=== PATIENT | female | born 1945 | race Caucasian/White ===

== ENCOUNTER 2016-09-05 10:10 | Emergency (ER) | payer BC ==
[~2016-09-05] VITALS: Ht 167.6 cm; Wt 76.5 kg
[~2016-09-05 10:10] MED LIST: ASPCH81X PO; CALC-51 PO; DICL-201 PO; GLUCOSAMINE PO; MULTTAB58 PO; OMEG12006 PO; VITAMIN D PO
[2016-09-05 10:11] VITALS: TEMP 36.3; Ht 167.6 cm; Wt 76.5 kg
[2016-09-05] MEDS ORDERED: ONDANSETRON INJ 2 MG/ML 2 ML VIAL IV STA (10:18)
[2016-09-05] MEDS ORDERED: KETOROLAC TROMETHAMINE 30 MG/ML VIAL IV STA (10:18)
[2016-09-05] MEDS ORDERED: SODIUM CHLORIDE 0.9% 1000ML 500 ML IV STA (10:18)
[2016-09-05] MEDS ORDERED: MoRPHine SULFATE 4 MG/ML 1 ML CARP\\VIAL IV PRN (10:30)
[2016-09-05 11:05] LABS: HEMATOCRIT 41.1 % (37-47); MEAN CELL VOLUME 87.4 fL (80-100); MEAN CORPUSCULAR HEMOGLOBIN 29.8 pg (25-34); MEAN CORPUSCULAR HGB CONC 34.1 g/dl (32-36); MEAN PLATELET VOLUME 10.6 fL (7.4-10.4); PLATELET COUNT 189 K/uL (130-400); WHITE BLOOD COUNT 4.85 K/uL (4.8-10.8)
[2016-09-05] MEDS ORDERED: CHOL1000 PO (11:10)
[2016-09-05] MEDS ORDERED: GARL1200 PO (11:10)
[2016-09-05] MEDS ORDERED: CALC-51 PO (11:10)
[2016-09-05] MEDS ORDERED: FLNIN/ NAE (11:10)
[2016-09-05] MEDS ORDERED: CYAN100048 PO (11:10)
[2016-09-05] MEDS ORDERED: [UNRECOGNIZED DRUG - CODE] PO (11:10)
[2016-09-05 11:23] LABS: CREATININE 0.84 mg/dl (0.60-1.20)
[2016-09-05 11:24] LABS: BUN/CREATININE RATIO 36.8 (10-20); CALCIUM 8.8 mg/dl (8.5-10.1); POTASSIUM 3.9 mmol/L (3.5-5.1)
--- NOTE | 2016-09-05 11:28 | DIAGNOSTIC IMAGING REPORT ---
CT SCAN OF THE ABDOMEN AND PELVIS WITHOUT CONTRAST CLINICAL HISTORY: Right flank pain and hematuria. COMPARISON STUDY: 03/09/2015 TECHNIQUE: CT scan of the abdomen and pelvis was performed from the lung bases to the proximal femurs. Images are reviewed in the axial, sagittal, and coronal planes. IV contrast was not administered for this examination. CT DOSE: 919.08 mGycm FINDINGS: Lower chest: The heart is normal in size and configuration, without pericardial effusion. The lung bases and pleural spaces are clear. Liver: The unenhanced liver is normal in size, contour, and attenuation. There is no intrahepatic biliary ductal dilatation. There is a coarse right lobe calcification likely postinflammatory. Gallbladder: Surgically absent Spleen: Normal in size and attenuation. Pancreas: There is a stable 1 cm cystic lesion at the level the mid pancreatic body. This likely represents an IPMN Adrenal glands: Unremarkable. Kidneys: There is mild right-sided hydronephrosis. There is a 3 mm calculus at the level of the right ureteropelvic junction Bowel: There are no transition zones to indicate bowel obstruction. There is no acute diverticulitis. The appendix is felt to be normal. Peritoneum: There is no intraperitoneal free air or abdominal ascites. Vasculature: The abdominal aorta is normal in course and caliber. Adenopathy: None. Pelvic viscera: The uterus appears surgically absent. Skeletal structures: No destructive osseous lesions are seen. IMPRESSION: 1. 3 mm calculus at the level of the right ureteropelvic junction with mild secondary obstructive changes 2. Stable 1 cm cystic lesion within the mid pancreatic body, likely representing an IPMN Electronically signed by: Doug Fuentes M.D. 09/05/2016 11:26 AM Dictated Date/Time: 09/05/2016 11:22 AM
[2016-09-05 12:48] LABS: URINE APPEARANCE CLEAR (CLEAR); URINE BILIRUBIN NEG (NEG); URINE COLOR YELLOW; URINE EPITHELIAL CELL AUTO >30 /lpf (0-5); URINE NITRITE NEG (NEG); URINE SPECIFIC GRAVITY 1.021 (1.000-1.030); UROBILINOGEN NEG (NEG); ZZUR CULT IF INDIC CLEAN CATCH YES
[2016-09-05 12:56] LABS: MANUAL MICROSCOPIC REQUIRED? NO; REVIEW REQ? YES
[2016-09-05 13:25] LABS: URINE MUCUS PRESENT (NONE PRSENT)
[2016-09-05] MEDS ORDERED: OXYC1TAB3 PO (13:46)
[2016-09-05 14:00] VITALS: BP 115/54; PULSE 55; O2SAT 99
--- NOTE | 2016-09-05 14:40 | EMERGENCY ROOM VISIT NOTE ---
History Report prepared by Lucia: Jez Rolon Under the Supervision of: Dr. Gokul Slaughter M.D. First contact with patient: 10:15 Chief Complaint: URINARY SYMPTOMS Stated Complaint: KIDNEY PAIN History of Present Illness The patient is a 71 year old female who presents to the Emergency Room with complaints of constant right flank pain starting two hours ago. She reports the pain as a 9/10 in severity. The patient states that she was not able to get sleep last night and woke up with the severe pain in her right flank. She also states that when she initially woke up she felt constipated and nauseous, but had two bowel movements later relieving her of these symptoms. She reports that she came to the ED a year and a half ago when they ran a CT scan and found a small kidney calculus. The patient states that they gave her medication for her pain and that she never saw the kidney stone pass. The patient states that the pain she is currently experiencing is similar to the pain she experienced when she had her last kidney calculus. She reports that she has been drinking a lot of fluid. The patient denies any urinary symptoms or radiation of pain. 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 A total of 10 systems reviewed and were otherwise negative. Past Medical & Surgical Medical Problems: (1) Basal cell carcinoma of skin Surgical Problems: (1) H/O bilateral salpingo-oophorectomy (2) History of cholecystectomy (3) History of hysterectomy Family History Patient reports no known family medical history. Social History Smoking Status: Never Smoker Smokeless Tobacco Use: No Alcohol Use: occasionally (one drink/ week) Drug Use: none Occupation Status: employed Current/Historical Medications Scheduled Aspirin (Aspirin Chewable), 81 MG PO QPM Calcium Carbonate-Vitamin D (Calcium), 1 TAB PO DAILY Cholecalciferol (Vitamin D3), 1 TAB PO DAILY Cyanocobalamin (Vitamin B-12), 1 TAB PO DAILY Fluticasone Propionate (Fluticasone Propionate), 1 SPRAY JOSE ENRIQUE DAILY Garlic (Garlic), 1 CAP PO DAILY Multiple Vitamin (Multivitamin), 1 TAB PO QPM Wallace-3 Fatty Acids (Wallace 3), 1 CAP PO QPM [Reuma-Art], 1 CAP PO DAILY Scheduled PRN Oxycodone Ir (Roxicodone Ir), 1-2 TAB PO Q4H PRN for Pain Allergies Coded Allergies: No Known Allergies (Verified , 03/23/16) Physical Exam Vital Signs Date Time Temp Pulse Resp B/P (MAP) Pulse Ox O2 Delivery O2 Flow Rate FiO2 09/05/16 14:00 55 20 115/54 99 09/05/16 11:40 59 20 131/65 95 09/05/16 10:47 62 20 158/68 100 Room Air 09/05/16 10:11 36.3 113 20 161/69 92 Room Air Physical Exam GENERAL: Patient is in moderate distress secondary to pain. HEENT: No acute trauma, normocephalic atraumatic, mucous membranes moist, no nasal congestion, no scleral icterus. NECK: No stridor, no adenopathy, no meningismus, trachea is midline. LUNGS: Clear to auscultation bilaterally, no wheeze, no rhonchi, breath sounds equal. HEART: Without murmurs gallops or rubs, regular rate and rhythm. ABDOMEN: Soft, nontender, bowel sounds positive, no hernias, no peritonitis. BACK: Right flank discomfort with percussion EXTREMITIES: No cyanosis or edema, full range of motion of all the joints without pain or difficulty, no signs for acute trauma. NEUROLOGIC: Oriented x 3, no acute motor or sensory deficits, no focal weakness. SKIN: No rash, no jaundice, no diaphoresis. Medical Decision & Procedures ER Provider Diagnostic Interpretation: CT results as stated below per my review and radiologist interpretation: CT SCAN OF THE ABDOMEN AND PELVIS WITHOUT CONTRAST CLINICAL HISTORY: Right flank pain and hematuria. COMPARISON STUDY: 03/09/2015 TECHNIQUE: CT scan of the abdomen and pelvis was performed from the lung bases to the proximal femurs. Images are reviewed in the axial, sagittal, and coronal planes. IV contrast was not administered for this examination. CT DOSE: 919.08 mGycm FINDINGS: Lower chest: The heart is normal in size and configuration, without pericardial effusion. The lung bases and pleural spaces are clear. Liver: The unenhanced liver is normal in size, contour, and attenuation. There is no intrahepatic biliary ductal dilatation. There is a coarse right lobe calcification likely postinflammatory. Gallbladder: Surgically absent Spleen: Normal in size and attenuation. Pancreas: There is a stable 1 cm cystic lesion at the level the mid pancreatic body. This likely represents an IPMN Adrenal glands: Unremarkable. Kidneys: There is mild right-sided hydronephrosis. There is a 3 mm calculus at the level of the right ureteropelvic junction Bowel: There are no transition zones to indicate bowel obstruction. There is no acute diverticulitis. The appendix is felt to be normal. Peritoneum: There is no intraperitoneal free air or abdominal ascites. Vasculature: The abdominal aorta is normal in course and caliber. Adenopathy: None. Pelvic viscera: The uterus appears surgically absent. Skeletal structures: No destructive osseous lesions are seen. IMPRESSION: 1. 3 mm calculus at the level of the right ureteropelvic junction with mild secondary obstructive changes 2. Stable 1 cm cystic lesion within the mid pancreatic body, likely representing an IPMN Electronically signed by: Doug Fuentes M.D. 09/05/2016 11:26 AM Dictated Date/Time: 09/05/2016 11:22 AM Laboratory Results 09/05/16 10:50 09/05/16 10:50 Test 09/05/16 10:50 09/05/16 11:59 Red Blood Count 4.70 M/uL (4.2-5.4) Mean Corpuscular Volume 87.4 fL (80-100) Mean Corpuscular Hemoglobin 29.8 pg (25-34) Mean Corpuscular Hemoglobin Concent 34.1 g/dl (32-36) RDW Standard Deviation 44.7 fL (36.4-46.3) RDW Coefficient of Variation 13.8 % (11.5-14.5) Mean Platelet Volume 10.6 fL (7.4-10.4) Anion Gap 11.0 mmol/L (3-11) Est Creatinine Clear Calc Drug Dose 66.0 ml/min Estimated GFR () 82.2 Estimated GFR (Non- 70.9 BUN/Creatinine Ratio 36.8 (10-20) Calcium Level 8.8 mg/dl (8.5-10.1) Urine Color YELLOW Urine Appearance CLEAR (CLEAR) Urine pH 7.0 (4.5-7.5) Urine Specific Paterson 1.021 (1.000-1.030) Urine Protein TRACE (NEG) Urine Glucose (UA) NEG (NEG) Urine Ketones NEG (NEG) Urine Occult Blood 3+ (NEG) Urine Nitrite NEG (NEG) Urine Bilirubin NEG (NEG) Urine Urobilinogen NEG (NEG) Urine Leukocyte Esterase MODERATE (NEG) Urine WBC (Auto) 10-30 /hpf (0-5) Urine RBC (Auto) >30 /hpf (0-4) Urine Hyaline Casts (Auto) 1-5 /lpf (0-5) Urine Epithelial Cells (Auto) >30 /lpf (0-5) Urine Bacteria (Auto) 1+ (NEG) Urine Renal Epithelial Cells /lpf (0-5) Urine Crystals CALCIUM OXALATE (NONE Urine Mucus PRESENT (NONE PRSENT) Laboratory results reviewed by me. Medications Administered Medications (Trade) Dose Ordered Sig/Annia Route Start Time Stop Time Status Last Admin Dose Admin Sodium Chloride 500 ml @ 999 mls/hr Q31M STAT IV 09/05/16 10:18 09/05/16 10:48 DC 09/05/16 10:18 999 MLS/HR Ondansetron HCl (Zofran Inj) 4 mg NOW STAT IV 09/05/16 10:18 09/05/16 10:21 DC 09/05/16 10:45 4 MG Morphine Sulfate (MoRPHine SULFATE INJ) 4 mg Q15M PRN IV 09/05/16 10:30 09/05/16 14:35 DC 09/05/16 10:46 4 MG Ketorolac Tromethamine (Toradol Inj) 30 mg NOW STAT IV 09/05/16 10:18 09/05/16 10:21 DC 09/05/16 10:46 30 MG ED Course 1019: The patient was evaluated in room B08. A complete history and physical exam was performed. 1019: Toradol Injection 30 mg IV, Zofran Injection 4 mg IV, Sodium Chloride 500 ml @ 999 mls/hr. 1030: Morphine Sulfate 4 mg IV. 1201: I reevaluated the patient. She is comfortable and gave her urine sample. She is currently waiting on the results. 1336: I reevaluated the patient and she is doing well. I discussed results and discharge instructions: She verbalized understanding and agreement. The patient is ready for discharge. I did personally review the patient's medication list. The patient's blood pressure is mildly elevated and she can be referred as an outpatient to follow with her doctors office. Medical Decision The differential diagnosis include but is not limited to: Renal colic, UTI, pyelonephritis, pancreatitis, musculoskeletal pain, nerve impingement, hernia. There is no leukocytosis or concerning anemia. No significant electrolyte abnormality or kidney failure. Urinalysis shows hematuria and presumed contamination, urine culture is pending. Abdominal and pelvis CT shows a 3 mm stone in the ureter at the UPJ. Hydronephrosis was present. The patient was given IV saline, IV Toradol, IV Zofran and IV morphine, she is comfortable. The patient is being discharged with a urine strainer, oxycodone for pain. Hydration and follow-up as an outpatient was suggested. She should return here for fever, vomiting or uncontrolled pain. [place] Drug Monitoring Program Search Results: patient reviewed within database, no issues identified Impression Primary Impression: Renal colic Scribe Attestation The scribe's documentation has been prepared under my direction and personally reviewed by me in its entirety. I confirm that the note above accurately reflects all work, treatment, procedures, and medical decision making performed by me. Departure Information Dispostion Home / Self-Care Prescriptions Oxycodone Ir (Roxicodone Ir) 5 Mg Tab 1-2 TAB PO Q4H Y for Pain, #12 TAB Prov: Gokul Slaughter M.D. 09/05/16 Referrals No Doctor, Assigned (PCP) Forms HOME CARE DOCUMENTATION FORM, IMPORTANT VISIT INFORMATION Patient Instructions My [facility] [place] SuddenValues Additional Instructions fluids rest motrin/tylenol for pain oxy ir 1-2 tab every 4 hours for severe pain follow with tammy cabrera for a recheck later this week strain all the urine for the stone return for fever, vomiting or uncontrolled pain
== END 2016-09-05 14:03 | disposition home or self-care (01) ==
LOC: C.EDB 10:11
DX: N23 Unspecified renal colic (principal); C44.91 Basal cell carcinoma of skin, unspecified; Z79.82 Long term (current) use of aspirin

== ENCOUNTER → 2017-01-02 | Outpatient (CLI) | payer BC ==
[~2017-01-02] MED LIST changes: +CHOL1000 PO; +CYAN100048 PO; -DICL-201 PO; +FLNIN/ NAE; +GARL1200 PO; -GLUCOSAMINE PO; +OXYC1TAB3 PO; -VITAMIN D PO; +[UNRECOGNIZED DRUG - CODE] PO
--- NOTE | 2017-01-03 07:41 | MAMMOGRAPHY REPORT ---
BILATERAL DIGITAL SCREENING MAMMOGRAM TOMOSYNTHESIS WITH CAD: 01/02/2017 CLINICAL HISTORY: Routine screening. Patient has no complaints. TECHNIQUE: Breast tomosynthesis in addition to standard 2D mammography was performed. Current study was also evaluated with a Computer Aided Detection (CAD) system. COMPARISON: Comparison is made to exams dated: 01/01/2016 mammogram, 12/29/2014 mammogram, 12/20/2012 m ammogram, 12/17/2010 mammogram, and 12/16/2009 mammogram - [facility]. BREAST COMPOSITION: There are scattered areas of fibroglandular density in both breasts. FINDINGS: There is a possible area of architectural distortion in the 12:00 middle one third of the right breast, for which additional spot compression tomosynthesis views and possible ultrasound are r ecommended. There are diffuse bilateral benign-appearing punctate microcalcifications. No other suspicious mass, architectural distortion or cluster of microcalcifications is seen. IMPRESSION: ACR BI-RADS CATEGORY 0: INCOMPLETE EVALUATION: NEED ADDITIONAL IMAGING EVALUATION The possible architectural distortion in the 12:00 right additional evaluation. The patient will be called to schedule an appointment. Approximately 10% of breast cancers are not detected with mammography. A negative mammographic report should not delay biopsy if a clinically suggestive mass is present. Shanna Emmanuel M.D. ay/:01/02/2017 16:01:17 Paper Goods Machine Operator: Milady ROCA(R)(M), [facility] letter sent: Addl Imaging 0 BI-RADS Code: ACR BI-RADS Category 0: Incomplete Evaluation: Need Additional Imaging Evaluation
== END | disposition home or self-care (01) ==
LOC: C.MAMM 09:35
PROVIDERS: ATTEND Family Medicine
DX: Z12.31 Encounter for screening mammogram for malignant neoplasm of breast (principal); R92.8 Other abnormal and inconclusive findings on diagnostic imaging of breast

== ENCOUNTER → 2017-01-11 | Outpatient (CLI) | payer BC ==
--- NOTE | 2017-01-12 07:49 | MAMMOGRAPHY REPORT ---
UNILATERAL RIGHT DIGITAL DIAGNOSTIC MAMMOGRAM TOMOSYNTHESIS AND TARGETED RIGHT ULTRASOUND: 01/11/2017 CLINICAL HISTORY: Callback from screening mammogram for possible right breast architectural distortio n. The patient reports a family history of breast cancer in her mother. TECHNIQUE: Breast tomosynthesis in addition to standard 2D mammography was performed. Spot compress ion right CC and MLO 2-D and tomosynthesis images were obtained. COMPARISON: Comparison is made to exams dated: 01/02/2017 mammogram, 01/01/2016 mammogram, 12/29/2014 m ammogram, 12/23/2013 mammogram, 12/20/2012 mammogram, and 12/20/2011 mammogram - [facility]. BREAST COMPOSITION: There are scattered areas of fibroglandular density in the right breast. FINDINGS: The previously described possible architectural distortion in the right 12:00 breast remain s equivocal on the spot compression views, without a suspicious associated mass or other associated f inding seen on the additional images. Targeted ultrasound was performed of the right breast in the r egion of the questionable architectural distortion. In the right breast at 11:30 periareolar region, there is a subtle ill-defined hypoechoic region measuring 1.4 x 0.9 cm. It is unclear if this could correlate with the mammographic finding. The finding is indeterminate and ultrasound-guided core ne edle biopsy is recommended for further evaluation. IMPRESSION: ACR BI-RADS CATEGORY 4: SUSPICIOUS, TARGETED ULTRASOUND ACR BI-RADS CATEGORY 4: SUSPICIO US Equivocal architectural distortion in the right 12:00 breast mammographically on the additional views . A subtle 1.4 cm hypoechoic region is seen in the right 11:30 breast on ultrasound, which may corre spond with the mammographic finding. The finding is indeterminate and ultrasound-guided core needle biopsy is recommended for further evaluation, with post-clip mammograms to evaluate for mammographic- sonographic concordance. A phone call was made to the physician's office to confirm faxed results were received. The patient has been verbally notified of the results. She tentatively scheduled the biopsy before leaving the [facility]. Approximately 10% of breast cancers are not detected with mammography. A negative mammographic report should not delay biopsy if a clinically suggestive mass is present. Lynn Felton M.D. /:01/11/2017 12:01:09 Assistant Technician: Minnie Ellis RT(Bowen)(M), [facility] letter sent: Abnormal 4/5 BI-RADS Code: ACR BI-RADS Category 4: Suspicious Ultrasound BI-RADS: ACR BI-RADS Category 4: Suspici ous
== END | disposition home or self-care (01) ==
LOC: C.MAMM 10:48
PROVIDERS: ATTEND Family Medicine
DX: R92.8 Other abnormal and inconclusive findings on diagnostic imaging of breast (principal)

== ENCOUNTER → 2017-01-19 | Outpatient (CLI) | payer BC ==
--- NOTE | 2017-01-19 09:50 | Discharge Instructions ---
Discharge Instructions Procedure Procedure Date: Jan 19, 2017. Reason for visit: Right Hypoechoic Area. Discharge Discharge Date: Jan 19, 2017. Discharge Diagnosis: status post breast biopsy Instructions Activity Recommendations: Additional Limitations (see below) Return to School/Work: no limitations Recommended Home Diet: No Limitations Provider Instructions: ACTIVITY RECOMMENDATIONS: * No lifting, pushing, pulling or exercising the affected side for three days. RETURN TO SCHOOL/WORK: * You may return to work/school after the procedure, but do not perform any strenuous activities for 24 to 48 hours. MEDICATIONS: * Tylenol (two 325 mg) every four to six hours if needed for mild pain (if not allergic to Tylenol). DIET: * Resume previous diet. SPECIAL CARE INSTRUCTIONS: * Keep biopsy site dry for 24 hours. May shower after 24 hours, but do not soak (bathe) incision. * May remove Tegaderm (plastic patch) tomorrow AFTER showering. * Leave the steri-strips on for one week. Allow the steri-strips to fall off by themselves. If not off after one week, you may remove them. You may place a Bandaid crosswise over the strips, if desired. * Apply ice 10 minutes on and 10 minutes off as needed. * Wear a bra at bedtime to sleep more comfortably for 2-3 days. * Your referring physician should have the results after approximately 5 to 7 business days. * Call for unusual bleeding, fever, drainage, etc or if you have any questions call during normal business hours or after hours call Dr Felton, [phone]. FOLLOW UP VISIT: Follow-up with Referring Physician as scheduled. Allergies Coded Allergies: No Known Allergies (Verified , 03/23/16) Rekha Paez Recommendations: Call your doctor if: * Temperature above 101 degrees * Pain not relieved by pain medicine ordered * There is increased drainage or redness from any incision * You have any unanswered questions or concerns. Your Doctors Instructions noted above were prepared by provider Lynn Felton. Patient Signature Section: Patient Instructions Signature Page Love Carmen Patient (or Guardian) Signature/Date: I have read and understand the instructions given to me by my caregivers. Caregiver/RN/Doctor Signature/Date: The above-named patient and/or guardian has received patient instructions on this date. + Original Patient Signature Page (only) stays with chart. Please make copy for patient.
--- NOTE | 2017-01-19 14:32 | MAMMOGRAPHY REPORT ---
THIS REPORT HAS BEEN AMENDED. ULTRASOUND GUIDED BIOPSY RIGHT BREAST: 01/19/2017 CLINICAL HISTORY: Ill-defined hypoechoic region in the right 11:30 breast on ultrasound. PATIENT CONSENT: The procedure, risks and benefits were discussed with the patient and informed writt en consent was obtained. A timeout was performed immediately prior to the procedure. PROCEDURE DESCRIPTION: With ultrasound guidance, aseptic technique, and lidocaine as the local anesth etic (1% lidocaine to anesthetize the skin and 1% lidocaine with epinephrine to anesthetize the deepe r tissues), the hypoechoic region in the right 11:30 breast was sampled 4 times with a 14-gauge Achie ve biopsy needle. Immediately thereafter, with ultrasound guidance, aseptic technique, and lidocaine as the local anesthetic, a metallic localizer clip was placed at the biopsy site. Direct pressure w as applied to the site immediately post procedure and hemostasis was achieved. Postprocedure unilate ral mammograms were performed to confirm clip placement. The patient tolerated the procedure without complication. She was given wound care instructions. The specimens were sent to pathology for lona sis. COMPARISON: Comparison is made to exams dated: 01/11/2017 ultrasound, 01/11/2017 mammogram, 7 mammogram, 01/01/2016 mammogram, 12/29/2014 mammogram, and 12/23/2013 mammogram - [facility]. IMPRESSION: ULTRASOUND GUIDED BIOPSY Ultrasound guided core needle biopsy of the hypoechoic region in the right 11:30 breast, with clip pl acement. The patient will receive pathology results from her referring provider. Lynn Felton M.D. ah/:01/19/2017 09:51:35 Account Management Assistant: Minnie CHEEMA)(Sameer), [facility] AMENDMENT: 01/25/2017 Lynn Felton M.D. Pathology from ultrasound-guided right breast biopsy was reviewed on 01/25/2017. The pathology of the right 11:30 breast mass yielded infiltrative lobular carcinoma grade 1, which is concordant with the imaging findings. Surgical consultation is recommended. Given the subtle mammographic appearance o f the malignancy and given the lobular pathology, consider preoperative bilateral breast MRI.
--- NOTE | 2017-01-19 14:32 | MAMMOGRAPHY REPORT ---
UNILATERAL RIGHT DIGITAL DIAGNOSTIC MAMMOGRAM TOMOSYNTHESIS: 01/19/2017 CLINICAL HISTORY: Status post right breast ultrasound guided biopsy. TECHNIQUE: Breast tomosynthesis in addition to standard 2D mammography was performed. Postprocedura l right CC and ML tomosynthesis images were obtained. COMPARISON: Comparison is made to exams dated: 01/11/2017 ultrasound, 01/11/2017 mammogram, 7 mammogram, 01/01/2016 mammogram, 12/29/2014 mammogram, and 12/23/2013 mammogram - [facility]. BREAST COMPOSITION: There are scattered areas of fibroglandular density in the right breast. FINDINGS: A new biopsy marker clip is seen in the right breast status post ultrasound guided biopsy of the hypoechoic region in the right 11:30 rest. The biopsy clip is located in the area of equivoca l architectural distortion, indicating good mammographic-sonographic correlation. No significant pos tbiopsy hematoma is seen. IMPRESSION: POST PROCEDURE IMAGING FOR MARKER PLACEMENT New biopsy marker clip status post right breast biopsy. Pathology results are pending. Approximately 10% of breast cancers are not detected with mammography. A negative mammographic report should not delay biopsy if a clinically suggestive mass is present. Lynn Felton M.D. ah/:01/19/2017 10:01:58 Automatic I Threading Machine Feeder: Minnie CHEEMA)(Sameer), [facility] BI-RADS Code: Post Procedure Imaging For Marker Placement
== END | disposition home or self-care (01) ==
LOC: C.MAMM 09:20
PROVIDERS: ATTEND Family Medicine
DX: C50.911 Malignant neoplasm of unspecified site of right female breast (principal)

== ENCOUNTER → 2017-06-08 | Outpatient (CLI) | payer BC ==
[~2017-06-08] MED LIST changes: +BLUEBERRY PO; -GARL1200 PO; -OXYC1TAB3 PO; +Tumeric PO
== END | disposition home or self-care (01) ==
LOC: C.PATHSPEC 16:44
PROVIDERS: ATTEND Dermatology
DX: L57.0 Actinic keratosis (principal)

== ENCOUNTER → 2017-07-04 | Outpatient (CLI) | payer BC ==
[~2017-07-04] MED LIST changes: +FMR25 PO
[2017-07-04 14:55] VITALS: BP 137/78; PULSE 76; TEMP 36.8; O2SAT 93
--- NOTE | 2017-07-04 17:03 | Radiation Oncology Follow-Up ---
Radiation Oncology Follow-Up Date of Visit Jul 04, 2017. Reason For Visit One-month follow-up in cancer survivorship care plan Radiation Completion Date 06/06/17 Diagnosis (1) Malignant neoplasm of upper-outer quadrant of right breast in female, estrogen receptor positive Status: Acute Onset Date: 01/19/2017 Stage: ll Permanent Comment: Abnormal right breast mammogram Status post ultrasound-guided core needle biopsy 01/19/2017 Lobular carcinoma grade 1 Estrogen receptor positive, progesterone receptor positive, HER-2/charo negative Status post right needle localization lumpectomy and sentinel lymph node biopsy 03/01/2017 Stage pT2 pN0 M0, positive margin Status post reexcision 04/05/2017, benign Prosigna score 31 Status post completion of radiation therapy June 06, 2017. She received 5130 cGy utilizing hypo-fractionation. Last Edited By: Nimo Barry on Jun 16, 2017 12:07 History of Present Illness We are seeing Ms. Carmen in consultation at the request of Dr. Skye Valenzuela. Ms. Carmen presented with an abnormal mammogram on 01/02/2017. 01/02/2017 - Bilateral screening mammogram - IMPRESSION: ACR BI-RADS CATEGORY 0 : INCOMPLETE EVALUATION: NEED ADDITIONAL IMAGING EVALUATION. The possible architectural distortion in the 12:00 right additional evaluation. 01/19/2017 - unilateral right diagnostic mammogram - IMPRESSION: ACR BI-RADS CATEGORY 4: SUSPICIOUS, TARGETED ULTRASOUND ACR BI-RADS CATEGORY 4: SUSPICIOUS. Equivocal architectural distortion in the right 12:00 breast mammographically on the additional views. A subtle 1.4 cm hypoechoic region is seen in the right 11:30 breast on ultrasound, which may correspond with the mammographic finding. The finding is indeterminate and ultrasound-guided core needle biopsy is recommended for further evaluation, with post-clip mammograms to evaluate for mammographic-sonographic concordance. 01/19/2017 - right breast biopsy, 11:30 position - invasive lobular carcinoma, grade 1, no in situ component, no perineural/lymphovascular space invasion, estrogen receptor positive, progesterone receptor positive, HER-2 negative. 01/31/2017 - consultation with Dr. Skye Valenzuela, breast surgeon. Patient elected to undergo lumpectomy and sentinel lymph node biopsy. She underwent a CT simulation was found to be a candidate for hypo- fractionation. Radiation was completed June 06, 2017. She received 5130 cGy. 03/01/2017 - right breast lumpectomy/sentinel lymph node biopsy (Dr. Skye Valenzuela ) - invasive lobular carcinoma, grade 2 with direct extension to posterior margin of resection and close approximation of the anterior/medial margins. 21 mm. 0/2 SLNs positive. Prosigna score - 31, "low risk" 03/14/2017 - blood sample obtained for genetic testing. Negative result for the BRCA1/2 mutations. 03/16/2017 - patient seen in consultation by Dr. Polo Laird, medical oncology. Dr. Laird recommended adjuvant hormonal therapy utilizing letrozole. Dr. Laird recommended adjuvant radiation therapy. 04/05/2017 - reexcision to obtain negative margins by Dr. Valenzuela - pathology revealed benign breast tissue with extensive fat necrosis and reactive biopsy site changes with no evidence of atypia or malignancy. Dr. Valenzuela referred the patient for adjuvant radiation therapy. We are now seeing the patient in consultation to discuss the role of radiation therapy. Pro-signal score of 31 Status post completion of radiation therapy June 06, 2017. She received 5130 centigrade utilizing hypo-fractionation. Interim History She has been doing well over this past month. She had some mild skin irritation that has steadily resolved. She denies any pain or tenderness. She is noted no masses of the breast. She has no swelling in the axilla. She has had no change of her arm. She did note some swelling in the left lower neck and above the clavicle. This began approximately 2 weeks ago. She does have a dermatologic issue going on in regards to her left arm. She has been using a new topical cream from the shuttle preparation supervisor. Allergies Coded Allergies: No Known Allergies (Verified , 03/23/16) Home Medications Scheduled Aspirin (Aspirin Chewable), 81 MG PO QPM Calcium Carbonate-Vitamin D (Calcium), 1 TAB PO DAILY Cyanocobalamin (Vitamin B-12), 1 TAB PO DAILY Letrozole (Femara), 1 TAB PO DAILY Multiple Vitamin (Multivitamin), 1 TAB PO QPM [place]-3 Fatty Acids ([place] 3), 2 CAP PO QPM [Reuma-Art], 1 CAP PO DAILY [Tumeric], 1 CAP PO DAILY Scheduled PRN Fluticasone Propionate (Fluticasone Propionate), 1 SPRAY JOSE ENRIQUE DAILY PRN for Allergic Reaction Review of Systems Gastrointestinal: Symptoms: WNL Oral: Symptoms: No Problems Respiratory: Symptoms: WNL Urinary: Symptoms: WNL Skin: Other Skin Symptoms: entire body feels dry Breast: Right Upper Arm Measurement: 28.8 Right Mid Arm Measurement: 23.6 Right Wrist Measurement: 15.7 Left Upper Arm Measurement: 29.0 Left Mid Arm Measurement: 22.3 Left Wrist Measurement: 15.2 Arm Dominence: Right Additional Notes: She completed a distress management report and answered "no" to all questions. Physical Exam Vital Signs Date Time Temp Pulse Resp B/P (MAP) Pulse Ox O2 Delivery O2 Flow Rate FiO2 07/04/17 14:55 36.8 76 18 137/78 93 ECOG Performance Status: 0 General Appearance: no apparent distress Eyes: normal inspection, EOMI ENT: normal ENT inspection, hearing grossly normal Neck: supple, no adenopathy, + pertinent finding (She has palpable fullness in the left supraclavicular area. There is no palpable nodes.) Respiratory/Chest: lungs clear, no respiratory distress, no accessory muscle use Breast: Breast examination reveals well-healed incisions of the right breast. There are no masses or tenderness and no axillary adenopathy. There is mild resolving hyperpigmentation. There is one small piece of eschar along the incision line. There is no axillary adenopathy. Using the Columbia score of cosmesis she has a good outcome. The left breast showed no masses or tenderness and no axillary adenopathy. Cardiovascular: regular rate, rhythm, no gallop, no murmur Extremities: no pedal edema, + pertinent finding (Keratotic lesions of the left arm with associated erythema from treatment.) Neurologic/Psychiatric: no motor/sensory deficits, alert, normal mood/affect Skin: warm/dry Pain Management Patient Reports Pain: No Initial Pain Intensity: 0.0 Pain Management Plan She denies pain therefore requires no pain management. Laboratory Laboratory Results: not applicable Pathology Pathology Results: were reviewed, and pertinent findings noted in HPI Imaging Imaging Studies: were reviewed, and pertinent findings noted in HPI Assessment & Plan Plan: The patient was seen and examined by Dr. Soria. The supraclavicular changes were discussed. She has been advised to see her shuttle preparation supervisor and have this rechecked. She will continue follow-up with her breast surgeon, medical oncology, and her primary care physician. Today we completed a cancer survivorship care plan. A copy of the document was given to the patient. She was given a survivorship booklet. Mammography was scheduled for the right breast in 2 months and bilateral mammography in 8 months. I reviewed with her that the usual continue to be digital diagnostic mammograms. We asked her to return to our office in 6 months. She may call if she has any questions or concerns in the interim. Assessment & Plan (Attending) I agree with note created by Nimo Barry PA-C. I reviewed the patient's chart and information with her. I have examined and evaluated the patient. I reviewed relevant clinical information and answered the patient's and/or family' s questions. CLEANING SPECIALIST Total Time In Follow-Up I spent 20 minutes speaking to the patient in performing examination. I spent 20 minutes reviewing information, preparing the survivorship document, and completing this note. AK Total Time (Attending) In Follow-Up I spent 15 minutes examining and counseling the patient. CLEANING SPECIALIST Copy To Skye Valenzuela MD; Polo Laird MD; Laura Guillen, D.O.
== END | disposition home or self-care (01) ==
LOC: C.ONC 14:48
PROVIDERS: ATTEND Physician Assistant Medical
DX: Z08 Encounter for follow-up examination after completed treatment for malignant neoplasm (principal); Z92.3 Personal history of irradiation; Z85.3 Personal history of malignant neoplasm of breast

== ENCOUNTER 2019-03-05 08:09 | Inpatient (IN) ==
--- NOTE | 2019-02-13 15:14 | PAT Medication Instructions ---
Medication Instructions Date of Service February 13, 2019 Home Medications magnesium glycinate 100 mg tablet 100 mg PO DAILY Fish Oil 4 cap PO DAILY Vitamin B-12 1 tab PO DAILY Vitamin D3 1 dose PO DAILY anastrozole 1 mg PO QAM calcium carbonate [Calcium 500] 500 mg PO DAILY cyclosporine [Restasis] 1 drp OPHTHALMIC (EYE) Q12H melatonin 5 mg PO HS multivitamin 1 tab PO QAM turmeric 400 mg PO DAILY ASK your prescriber and surgeon anastrozole 1 mg PO QAM STOP taking 2 weeks before surgery (or as soon as possible if surgery is within 2 weeks) Fish Oil 4 cap PO DAILY turmeric 400 mg PO DAILY DO NOT take the morning of surgery magnesium glycinate 100 mg tablet 100 mg PO DAILY Vitamin B-12 1 tab PO DAILY Vitamin D3 1 dose PO DAILY calcium carbonate [Calcium 500] 500 mg PO DAILY multivitamin 1 tab PO QAM Take morning of surgery With a small sip of water, OTHERWISE NOTHING TO EAT OR DRINK AFTER MIDNIGHT: cyclosporine [Restasis] 1 drp OPHTHALMIC (EYE) Q12H Take evening before surgery cyclosporine [Restasis] 1 drp OPHTHALMIC (EYE) Q12H melatonin 5 mg PO HS Other Notes If you have any questions please call us at [phone] or [phone] or [phone] or [phone]
--- NOTE | 2019-02-14 08:50 | Anesthesiology Consultation ---
Date of Service February 14, 2019 Assessment & Plan (1) Encounter for pre-operative examination: Chart Review Chart Review: Acceptable Risk for Surgery and Patient seen in Pre Admission Testing Teaching & Discussion Pre-Anesthesia Teaching/Discussion Notes: Instructed NPO after midnight before surgery,except medications with 15 cc of water. Medication instructions provided according to the PAT guidelines. History Surgery Operation Date: 03/05/19 12:35 Proposed Procedures p Left Total Knee Arthroplasty - Shreyas Robles MD Height/Weight Height: 5 ft 5 in Weight: 75.6 kg Allergies Allergy/AdvReac Type Severity Reaction Status Date / Time No Known Allergies Allergy Unknown Verified 02/12/19 13:24 Medications Home Medications Medication Instructions Recorded Confirmed Last Taken magnesium glycinate 100 mg tablet 100 mg PO DAILY tab 12/11/18 02/12/19 Unknown Fish Oil 4 cap PO DAILY 02/12/19 02/12/19 Unknown Vitamin B-12 1 tab PO DAILY 02/12/19 02/12/19 Unknown Vitamin D3 1 dose PO DAILY 02/12/19 02/12/19 Unknown anastrozole 1 mg PO QAM 02/12/19 02/12/19 Unknown calcium carbonate [Calcium 500] 500 mg PO DAILY 02/12/19 02/12/19 Unknown cyclosporine [Restasis] 1 drp OPHTHALMIC (EYE) Q12H 02/12/19 02/12/19 Unknown melatonin 5 mg PO HS 02/12/19 02/12/19 Unknown multivitamin 1 tab PO QAM 02/12/19 02/12/19 Unknown turmeric 400 mg PO DAILY 02/12/19 02/12/19 Unknown Past Medical History Medical History History of breast cancer s/p lumpectomy/XRT - RUE restriction History of kidney stones History of melanoma Osteoarthritis Exercise / Class Metabolic Activity II 4-5 Yardwork/Stairs/Walk up hill (one flight of stairs (no chest pain/no sob)) Past Family History Family History Brother Family history of diabetes mellitus Sister Family history of diabetes mellitus Past Surgical History Surgical History History of cholecystectomy History of colonoscopy History of lumpectomy of right breast X 2 History of melanoma excision History of right breast biopsy History of tonsillectomy History of tooth extraction History of total abdominal hysterectomy and bilateral salpingo-oophorectomy Past Anesthesia History No Hx of Anesthesia Complications and No Family Hx of Anesthesia Complications History of PONV No Hx of PONV and No Hx of Motion Sickness Social History Smoking Status: Never smoker Do You Dip or Chew Tobacco: No Hx Alcohol Use: Yes Alcohol type: beer, wine and hard liquor alcohol intake frequency: a few times a month Hx Substance Use: No substance use type: does not use Review of Systems Patient denies chest pain, shortness of breath, dyspnea on exertion, reflux, cough, wheezing, palpitations. Physical Exam Vital Signs VITALS BP 132/73 P 70 TEMP 98.3 SP02 97%RA RESP 16 PHYSICAL Full neck and c-spine range of motion. Full TMJ range of motion. TMD 3 finger breaths Mallampati Score 2 Dentition: intact, implant on side, crowns on molars Lungs: clear throughout to auscultation Cardiac: regular rate and rhythm, no murmurs noted Spine: normal Carotid arteries: negative bruit Extremities: no edema Testing Laboratory Results 02/14/19 09:20 02/14/19 09:20 PT 10.0 Seconds (9.0-12.0) 02/14/19 09:20 INR 1.0 (0.9-1.1) 02/14/19 09:20 APTT 25.7 Seconds (21.0-31.0) 02/14/19 09:20 Blood Type B Positive 02/14/19 09:20 Antibody Screen NEGATIVE 02/14/19 09:20 Electrocardiogram Date: 02/14/19 NSR at 76bpm. NS ST/TWA. Chest X-Ray Date: 02/14/19 Cardiac silhouette borderline enlarged. Lungs and pleural spaces clear. Degenerative changes of the thoracic spine. Cholecystectomy clips noted. No acute cardiopulmonary disease. Echocardiogram Date: 03/28/17 LVEF 69%. No RWMA. Grade I DD. No significant valvular disease.
--- NOTE | 2019-02-14 09:54 | XRay Report ---
XR chest Pre-admission PA/Lat CLINICAL HISTORY: 73 years-old Female presenting with preoperative evaluation. TECHNIQUE: PA and lateral views of the chest were obtained. COMPARISON: CTA chest from 01/05/2018. FINDINGS: Cardiac silhouette borderline enlarged. Lungs and pleural spaces clear. Degenerative changes of the t horacic spine. Cholecystectomy clips noted. IMPRESSION: 1. No acute cardiopulmonary disease. Electronically signed by: Moses Key M.D. 02/14/2019 9:53 AM
[2019-02-14 10:45] LABS: Basophils # (auto) 0.03 K/uL (0-0.2); Basophils % (auto) 0.7 %; Eosinophils # (auto) 0.12 K/uL (0-0.5); Eosinophils % (auto) 2.7 %; Hematocrit (blood only) 43.9 % (37-47); Immature Granulocytes # (auto) 0.01 K/uL (0.00-0.02); Immature Granulocytes % (auto) 0.2 %; Lymphocytes # (auto) 1.24 K/uL (1.2-3.4); Lymphocytes % (auto) 28.4 %; Mean Corpuscular Hemoglobin 30.7 pg (25-34); Mean Corpuscular Hgb Conc 34.2 g/dL (32-36); Mean Corpuscular Volume 89.8 fL (80-100); Monocytes # (auto) 0.23 K/uL (0.11-0.59); Monocytes % (auto) 5.3 %; Neutrophils # (auto) 2.74 K/uL (1.4-6.5); Neutrophils % (auto) 62.7 %; Platelet Count 199 K/uL (130-400); RDW Standard Deviation 45.7 fL (36.4-46.3); Red Blood Count 4.89 M/uL (4.2-5.4); White Blood Count 4.37 K/uL (4.8-10.8)
[2019-02-14 10:51] LABS: BUN Creatinine Ratio 38.7 (10-20); Calcium 9.3 mg/dl (8.5-10.1); Creatinine Clr Calc Pharmacy 68.2 ml/min; Est GFR (Non-African American) 77.7; Potassium 3.9 mmol/L (3.5-5.1)
[2019-02-14 10:52] LABS: Partial Thromboplastin Ratio 0.9; Partial Thromboplastin Time 25.7 Seconds (21.0-31.0)
[~2019-03-05 08:09] MED LIST changes: +ACETAMINOPHEN 500 MG TAB PO SCH; -ASPCH81X PO; -BLUEBERRY PO; +BUPIVACAINE 0.25% 30 ML VIAL ONE; +BUPIVACAINE 0.5 % 5 MG/1 ML PF 10ML VIAL ONE; +BUPIVACAINE LIPOSOME/PF 266 MG, BUPIVACAINE/EPINEPHRINE 50 ML, SODIUM CHLORIDE 0.9% 30 ... INFIL SCH; -CALC-51 PO; +CEFAZOLIN 2000MG 2,000 MG/15 ML SYR IV SCH; -CHOL1000 PO; -CYAN100048 PO; +FAMOTIDINE 20 MG TAB PO SCH; -FLNIN/ NAE; -FMR25 PO; +GABAPENTIN 300 MG CAP PO SCH; +LR 500ML BOLUS, THEN 15ML/HR IV SCH; +LR 60ML/HR IV SCH; +METOCLOPRAMIDE HCL 10 MG TABLET PO SCH; -MULTTAB58 PO; -OMEG12006 PO; +TRANEXAMIC ACID 1,000 MG **IV Intra-op IV SCH; -Tumeric PO; -[UNRECOGNIZED DRUG - CODE] PO
--- NOTE | 2019-03-05 08:27 | History & Physical Bridge Note ---
Date of Service March 05, 2019 History & Physical Bridge Note I have examined the patient, reviewed the History & Physical and in the interval since the performance of the History & Physical I have noted the following changes of clinical significance: no changes noted
[2019-03-05] MEDS ORDERED: fentaNYL citrate 100 MCG/2 ML VIAL ONE ×2 (09:24→09:41)
[2019-03-05] MEDS ORDERED: PROPOFOL IV EMULSION 10 MG/ML 20 ML VIAL IV ONE ×3 (09:24→11:55)
[2019-03-05] MEDS ORDERED: MIDAZOLAM HCL 1 MG/ML 2ML VIAL ONE ×2 (09:24→09:41)
[2019-03-05] MEDS ORDERED: DEXAMETHASONE SOD INJ 4 MG/ML VIAL ONE ×2 (09:25→09:40)
[2019-03-05] MEDS ORDERED: ONDANSETRON INJ 2 MG/ML 2 ML VIAL ONE ×2 (09:25→09:40)
[2019-03-05] MEDS ORDERED: TRANEXAMIC ACID 1,000 MG **IV Intra-op IV SCH (09:30)
[2019-03-05] MEDS ORDERED: ONDANSETRON INJ 2 MG/ML 2 ML VIAL IV PRN ×2 (10:29→13:53)
[2019-03-05] MEDS ORDERED: ePHEDrine sulfate 50 MG/ML AMP IV PRN (10:29)
[2019-03-05] MEDS ORDERED: fentaNYL citrate 100 MCG/2 ML VIAL IV PRN (10:29)
[2019-03-05] MEDS ORDERED: ATROPINE SULFATE 0.1 MG/ML 10ML SYR IV PRN (10:29)
[2019-03-05] MEDS ORDERED: BUPIVACAINE LIPOSOME 1.3% 266 MG/20 ML VIAL ONE (10:39)
[2019-03-05] MEDS ORDERED: BUPIVACAINE 0.25% 30 ML VIAL ONE (10:39)
[2019-03-05] MEDS ORDERED: BACITRACIN INJ 50,000 UNIT VIAL ONE (10:39)
[2019-03-05] MEDS ORDERED: EPINEPHrine INJ 1 MG/ML AMP ONE (10:39)
[2019-03-05] MEDS ORDERED: SODIUM CHLORIDE 0.9% PF 50 ML VIAL ONE (10:39)
--- NOTE | 2019-03-05 12:29 | Post Operative Brief Note ---
PG Immediate Post Op with CF Date of Surgery March 05, 2019 Pre & Post Diagnosis Operation Date: 03/05/19 10:40 Pre-Op Diagnosis: Left Knee Advanced Degenerative Joint Disease Post-Op Diagnosis: Left Knee Advanced Degenerative Joint Disease I identified the patient and participated in the time-out.: Yes Procedure Operation Date: 03/05/19 10:40 Actual Procedures p Left Total Knee Arthroplasty(Left) - Shreyas Robles MD Surgeon Shreyas Robles MD It Lead Patricia, PAC Estimated Blood Loss 50 Findings Consistent with Post-Op Diagnosis Fluids 1200 cc Specimens Specimen Description: A: Left knee bone & tissue Drains Bangura Catheter Anesthesia Type Spinal MAC Complications none Disposition Accompanied Patient To Recovery: No Disposition: Recovery Room
--- NOTE | 2019-03-05 12:53 | Operative Report ---
Post Operative Report Pre & Post Diagnosis Operation Date: 03/05/19 10:40 Pre-Op Diagnosis: Left Knee Advanced Degenerative Joint Disease Post-Op Diagnosis: Left Knee Advanced Degenerative Joint Disease I identified the patient and participated in the time-out.: Yes Procedure Operation Date: 03/05/19 10:40 Actual Procedures p Left Total Knee Arthroplasty(Left) - Shreyas Robles MD Surgeon Shreyas Robles MD Enterprise Application Architect Patricia, PAC Estimated Blood Loss 50 Findings Consistent with Post-Op Diagnosis Operative findings revealed advanced left knee DJD with a pretty extensive grade 4 [id number] disease and eburnation of the medial compartment. She also had translation/subluxation of the tibiofemoral joint with impingement of the lateral femoral condyle with grade 4 changes there as well. Moderate-sized joint effusion. She had a fixed varus deformity to her knee. She had a fairly stiff knee with about a 10 degree flexion contracture and flexion to about 105 degrees preoperatively. Fluids 1200 cc Specimens Left knee sent for pathology. Drains None. Anesthesia Type Spinal MAC Complications none Disposition Accompanied Patient To Recovery: No Disposition: Recovery Room Indications Patient is a 73-year-old female has had a several year history of increasing left knee pain discomfort patient been through extensive conservative treatment actually had a knee scope done 3 years ago without much relief. Over the past 3 years she developed progressive deformity and arthritic changes in her knee. She failed conservative treatment elective total knee arthroplasty. She did develop a fairly stiff knee with about a 10 degree flexion contracture and flexion to only about 105 degrees over time. Description of Procedure Operative implants consisted of: 1. Biomet Vanguard size 62.5 left posted by femoral component. 2. Biomet size 67 tibial tray. 3. 10 mm post device polyethylene insert. 4. 28 x 8 all poly-patella. Patient was taken to the operating room identified and placed on the operating table supine position protectors were properly padded. IV on box arrived by the anesthesia team. A spinal anesthetic and abductor canal block had provided in the holding area. Bangura catheter was placed in sterile fashion. Left thigh tourniquet was then placed in the left lower extremities and prepped draped in usual sterile fashion. Left leg was elevated exsanguinated use of an Esmarch and toes placed at 300 m mHg. An anterior posterior left knee was then performed to longitudinal incision centered over the patella. Sharp dissection was gone through subcutaneous tissue down to over the extensor mechanism. A medial parapatellar arthrotomy incision was made. Some subperiosteal dissection was carried out medially. The fat pad was resected from each patella tendon. Lateral patellofemoral ligament was released. Patella was subluxated laterally and the knee was flexed. The osteophytes were taken off the distal femur. The ACL and PCL were then released from distal femur the tibia subluxated anteriorly. The external tibial alignment jig was then placed in the interface the tibia and adjusted to 14 mm medially. Proximal tibial cut was made to move about a millimeter of bone from most efficient aspect of the posterior medial to plateau. Tibia was then sized to a size 67. Attention drawn the femur. The distal femur then with a sharp drop with intramedullary canal was suction. I left a 5 degree valgus cutting guide was placed but this femoral cutting block was pinned in place but distal femoral cut was made to take an additional 3 mm of bone off distal femur. Femur was then sized to a size 62.5. We did downsize this about a half a size. The AP cutting block was then pinned parallel to the epicondylar axis which was 6 degrees of external rotation. The anterior cut, anterior chamfer, posterior, posterior chamfer cuts were made. Box cutting guide was placed and then just slightly on the box cut was made. The knee was flexed with a murmur to the medial menisci were excised. The osteophytes were taken off the posterior aspect the femur. A trial femoral component was placed. The tibial tray was pinned in maximum external rotation and the drill was then punch used to create defect in proximal and 2 for the tibial tray. The knee was then trialed the 10 mm insert fit most appropriately. Attention drawn the patella. The patella was cleaned of all soft tissues. Patella thickness measured 20 mm in thickness was cut down to 13. Was sized to a size 28 patella. Local scheduled for the 28 patella. Lateral osteophytes removed. Patella button was placed. Knee was taken through range of motion patella tracked nicely with no thumbs test. Attention turned to placing the permanent components. All trial components removed. Bone plug was placed in the distal femur limit blood loss. L batch Palacos G cement was mixed. A BiomReactionguCO Everywhere size 62.5 left posterior box femoral component, size 67 tibial tray, 10 mm posterior box polyethylene insert, 28 x 8 all poly-patella were then cemented in place. Knee is brought in for extension of cement hardened. Final symmetric exam performed. Pericapsular tissues were injected with total 100 cc of combination of 20 of Exparel, 30 cc normal saline, 50 cc of quarter percent Marcaine with epinephrine. Patient did receive 1 g of tranexamic acid. The tourniquet was then let down for tourniquet time of 52 minutes. Hemostasis surgery was electrocautery. The extensor mechanism closed with combination 1 PDS suture #1 Vicryl suture in [id number] fashion. Extensor mechanism was checked and found to be intact with subcutaneous tissue then closed with 2-0 Dexon suture in a buried interrupted fashion skin was closed skin gudelia. Legs and clean dry sterile dressing composed of Xeroform, 4 x 4's, sterile cast padding, Say bandage applied. Patient then transferred to the recovery room in stable condition. The patient tolerated procedure well and there were no complications. I attest to the content of the Intraoperative Record and any orders documented therein. Any exceptions are noted below.
--- NOTE | 2019-03-05 12:58 | XRay Report ---
LEFT KNEE 2 VIEWS History: Left total knee arthroplasty. Degenerative arthritis. Postop. FINDINGS: The patient is status post a left total knee arthroplasty. The hardware is intact. No fract ure or dislocation. Skin gudelia are in place. IMPRESSION: Left total knee arthroplasty. No evidence for hardware complication. Electronically signed by: Geoff Ch M.D. 03/05/2019 12:57 PM
--- NOTE | 2019-03-05 13:45 | Anesthesiology Progress Note ---
Date of Service March 05, 2019 Anesthesia Post Procedure Vital Signs Vital Signs: Temp Pulse Pulse Resp BP Pulse Ox 03/05/19 13:25 36.7 C 72 12 132/57 L 98 03/05/19 13:15 36.7 C 67 15 123/60 97 03/05/19 13:05 78 14 130/53 L 98 03/05/19 12:55 77 16 120/54 L 100 03/05/19 12:45 68 15 118/54 L 100 03/05/19 12:35 36.8 C 78 14 120/50 L 99 03/05/19 08:40 36.6 C 71 135/82 96 Pain Intensity Left Knee: Pain Intensity: 0 Transfer of Care Handoff Completed per policy Notes Mental Status: alert / awake / arousable Patient Amnestic to Procedure: Yes Nausea / Vomiting: adequately controlled Pain: adequately controlled Airway Patency, RR, SpO2: stable & adequate BP & HR: stable & adequate Hydration State: stable & adequate Neuraxial Anesthesia: was administered and sensory block is resolving Anesthetic Complications: no major complications apparent and Pt Satisfied with anesthetic care
[2019-03-05] MEDS ORDERED: METOCLOPRAMIDE HCL INJ 5 MG/ML 2 ML VIAL IV PRN (13:53)
[2019-03-05] MEDS ORDERED: NON-FORMULARY MEDICATION (Cyclosporine [Restasis] 1 DROPS) OP SCH (13:53)
[2019-03-05] MEDS ORDERED: NALOXONE HCL 0.4 MG/1 ML VIAL/CARP IV PRN (13:53)
[2019-03-05] MEDS ORDERED: ALUMINUM/MAGNESIUM SUSP 30 ML UDC PO PRN (13:53)
[2019-03-05] MEDS ORDERED: HYDROmorphone INJ 0.5 MG/0.5 ML SYR IV PRN (13:53)
[2019-03-05] MEDS ORDERED: bisacodyL 10 MG SUPP PR PRN (13:53)
[2019-03-05] MEDS ORDERED: MAGNESIUM HYDROXIDE SUSP 30 ML UDC PO PRN (13:53)
[2019-03-05] MEDS: SODIUM CHLORIDE 0.9% 1000ML 1,000 ML IV SCH (14:24)
[2019-03-05] MEDS: KETOROLAC TROMETHAMINE 15 MG/ML VIAL IV SCH ×2 (14:24→19:40)
[2019-03-05] MEDS: ACETAMINOPHEN 500 MG TAB PO SCH ×2 (14:25→21:47)
[2019-03-05] MEDS: FERROUS GLUCONATE 324 MG TAB PO SCH (17:30)
[2019-03-05] MEDS: ASCORBIC ACID 500 MG TAB PO SCH (17:31)
[2019-03-05] MEDS: CEFAZOLIN 1000MG 1,000 MG/7.5 ML SYR IV SCH (17:32)
[2019-03-05] MEDS: OXYCODONE HCL IR 5 MG TAB (IMMEDIATE RELEASE) PO PRN (17:48)
[2019-03-05] MEDS ORDERED: TRANEXAMIC ACID / 0.7% NACL 1,000 MG/100 ML BAG IV SCH (18:00)
[2019-03-05] MEDS: cycloSPORINE (RESTASIS) OPB SCH (20:31)
[2019-03-05] MEDS: DOCUSATE SODIUM 100 MG CAP PO SCH (20:35)
[2019-03-05] MEDS: ASPIRIN 81 MG ECTAB PO SCH (20:36)
[2019-03-05] MEDS: SENNA 8.6 MG TAB PO SCH (20:36)
[2019-03-05] MEDS: TAPENTADOL HCL ER 50 MG TABCR PO SCH (20:42)
[2019-03-05] MEDS ORDERED: NON-FORMULARY MEDICATION (Melatonin 5 MG) PO SCH (21:00)
[2019-03-06] MEDS: CEFAZOLIN 1000MG 1,000 MG/7.5 ML SYR IV SCH (00:44)
[2019-03-06] MEDS: KETOROLAC TROMETHAMINE 15 MG/ML VIAL IV SCH ×4 (00:45→19:28)
[2019-03-06] MEDS: SODIUM CHLORIDE 0.9% 1000ML 1,000 ML IV SCH (00:59)
[2019-03-06] MEDS: ACETAMINOPHEN 500 MG TAB PO SCH ×3 (06:08→21:07)
[2019-03-06 06:55] LABS: Hematocrit (blood only) 34.9 % (37-47); Mean Corpuscular Hemoglobin 30.5 pg (25-34); Mean Corpuscular Hgb Conc 34.4 g/dL (32-36); Mean Corpuscular Volume 88.8 fL (80-100); Mean Platelet Volume 10.6 fL (7.4-10.4); Platelet Count 178 K/uL (130-400); RDW Coefficient of Variation 13.9 % (11.5-14.5); RDW Standard Deviation 45.5 fL (36.4-46.3); Red Blood Count 3.93 M/uL (4.2-5.4); White Blood Count 8.08 K/uL (4.8-10.8)
[2019-03-06 07:26] LABS: BUN Creatinine Ratio 29.4 (10-20); Calcium 8.8 mg/dl (8.5-10.1); Creatinine Clr Calc Pharmacy 70.9 ml/min; Est GFR (African American) 94.5; Est GFR (Non-African American) 81.5; Potassium 4.1 mmol/L (3.5-5.1)
[2019-03-06] MEDS: FERROUS GLUCONATE 324 MG TAB PO SCH ×2 (08:41→18:23)
[2019-03-06] MEDS: ASCORBIC ACID 500 MG TAB PO SCH ×2 (08:41→18:23)
[2019-03-06] MEDS: DOCUSATE SODIUM 100 MG CAP PO SCH ×2 (08:41→21:06)
[2019-03-06] MEDS: OMEGA-3 (PURIFIED FISH OIL) 1 GM CAP PO SCH (08:42)
[2019-03-06] MEDS: MAGNESIUM OXIDE 400 MG TAB PO SCH (08:42)
[2019-03-06] MEDS: MULTIVITAMIN TAB PO SCH (08:42)
[2019-03-06] MEDS: ASPIRIN 81 MG ECTAB PO SCH ×2 (08:42→21:07)
[2019-03-06] MEDS: CYANOCOBALAMIN 500 MCG TABLET (VITAMIN B-12) PO SCH (08:43)
[2019-03-06] MEDS: cycloSPORINE (RESTASIS) OPB SCH ×2 (08:43→21:06)
[2019-03-06] MEDS: CHOLECALCIFEROL 1,000 UNITS TAB PO SCH (08:43)
[2019-03-06] MEDS: ANASTROZOLE 1 MG TAB PO SCH (08:47)
[2019-03-06] MEDS: CALCIUM CARBONATE 1250MG TAB PO SCH (08:53)
[2019-03-06] MEDS: TAPENTADOL HCL ER 50 MG TABCR PO SCH ×2 (08:53→21:05)
[2019-03-06] MEDS: OXYCODONE HCL IR 5 MG TAB (IMMEDIATE RELEASE) PO PRN (08:54)
[2019-03-06] MEDS ORDERED: MULTIVITAMIN TAB PO SCH (09:00)
[2019-03-06] MEDS ORDERED: NON-FORMULARY MEDICATION (Turmeric 400 MG) PO SCH (09:00)
--- NOTE | 2019-03-06 18:26 | Progress Note ---
DATE: 03/06/2019 SUBJECTIVE: A 73-year-old white female postop day 1 from a left knee replacement. She is doing pretty well. She was in the bathroom earlier and passed some gas and had a little bit of vasovagal episode, got a little dizzy and lightheaded. She is lying down and comfortable, is improved. Denies any chest pain or shortness of breath. No other complaints. Pain has been pretty well controlled. OBJECTIVE: VITAL SIGNS: Temperature 36.6. Vital signs stable. GENERAL: Shows a pleasant, middle-aged female. She is lying in bed, looks pretty comfortable. LUNGS: Clear to auscultation. HEART: Regular rate and rhythm. ABDOMEN: Soft, nontender, nondistended. EXTREMITIES: Grossly neurovascularly intact except as follows: Examination of the left lower extremity reveals the leg to be well aligned. Dressing is clean, dry and intact. She can dorsiflex and plantarflex her foot appropriately. She is neurologically intact. LABORATORY DATA: Hemoglobin is 12.0. Hematocrit 34.9. Electrolytes are stable. ASSESSMENT: A 73-year-old white female postoperative day 1 from left knee replacement, doing pretty well. She had a little bit of vasovagal episode in the bathroom, but doing better now. The pain has been controlled. She is neurologically intact. PLAN: 1. DVT prophylaxis including thigh-high TEDs, SCDs, and aspirin twice a day. 2. PT/OT. Weight bear as tolerated. Left total knee protocol. 3. Pain control, doing pretty well with current pain regimen. 4. Disposition: Plan to discharge to home with some home health once adequately recovered and medically stable.
[2019-03-06] MEDS: SENNA 8.6 MG TAB PO SCH (21:06)
[2019-03-07] MEDS: KETOROLAC TROMETHAMINE 15 MG/ML VIAL IV SCH ×2 (01:48→08:42)
[2019-03-07] MEDS: ACETAMINOPHEN 500 MG TAB PO SCH (05:41)
--- NOTE | 2019-03-07 07:37 | Progress Note ---
DATE: 03/07/2019 SUBJECTIVE: A 73-year-old white female postop day 2 from a left knee replacement. She is doing okay. She has been denying the pain medicine due to concerns with this dizzy episode yesterday in the bathroom. She has been taking Tylenol, seemed to help, but then still some pain. No chest pain or shortness of breath. No further dizzy episodes. OBJECTIVE: VITAL SIGNS: Temperature 37.0. Vital signs stable. GENERAL: Shows a pleasant, middle-aged female. She is lying in bed, looks reasonably comfortable. EXTREMITIES: Examination of the left leg reveals the leg to be well aligned. Dressing is clean, dry and intact. She can dorsiflex and plantarflex her foot appropriately. She is neurologically intact. ASSESSMENT: A 73-year-old white female postop day 2 from a left knee replacement, doing okay. I really think this episode in the bathroom was a vasovagal episode and I encouraged her to try the pain medicine again. We will try 1 pill at a time. She will do therapy this morning. We will see how that goes and hopefully discharge later with home health. PLAN: 1. DVT prophylaxis including thigh-high TEDs, SCDs, and aspirin twice a day. 2. PT/OT. Weight bear as tolerated. Left total knee protocol. 3. Pain control, doing okay with current pain regimen. I encouraged to take 1 oxycodone at a time if she needs it. 4. Disposition: Plan to discharge to home with some home health later today if doing okay and pain controlled.
[2019-03-07] MEDS: OXYCODONE HCL IR 5 MG TAB (IMMEDIATE RELEASE) PO PRN (07:51)
[2019-03-07 08:11] VITALS: BP 133/76; PULSE 67; TEMP 98.4; O2SAT 97
[2019-03-07] MEDS: FERROUS GLUCONATE 324 MG TAB PO SCH (08:39)
[2019-03-07] MEDS: DOCUSATE SODIUM 100 MG CAP PO SCH (08:40)
[2019-03-07] MEDS: MULTIVITAMIN TAB PO SCH (08:40)
[2019-03-07] MEDS: ASPIRIN 81 MG ECTAB PO SCH (08:40)
[2019-03-07] MEDS: MAGNESIUM OXIDE 400 MG TAB PO SCH (08:40)
[2019-03-07] MEDS: OMEGA-3 (PURIFIED FISH OIL) 1 GM CAP PO SCH (08:40)
[2019-03-07] MEDS: ASCORBIC ACID 500 MG TAB PO SCH (08:40)
[2019-03-07] MEDS: CYANOCOBALAMIN 500 MCG TABLET (VITAMIN B-12) PO SCH (08:41)
[2019-03-07] MEDS: CALCIUM CARBONATE 1250MG TAB PO SCH (08:41)
[2019-03-07] MEDS: cycloSPORINE (RESTASIS) OPB SCH (08:41)
[2019-03-07] MEDS: CHOLECALCIFEROL 1,000 UNITS TAB PO SCH (08:42)
[2019-03-07] MEDS: ANASTROZOLE 1 MG TAB PO SCH (08:51)
[2019-03-07] MEDS: TAPENTADOL HCL ER 50 MG TABCR PO SCH (08:51)
--- NOTE | 2019-03-11 22:43 | Discharge Summary ---
ADMITTING PHYSICIAN AND SURGEON: Dr. Shreyas Robles. ADMITTING DIAGNOSIS: Left knee degenerative joint disease. SURGERY PERFORMED: Left total knee arthroplasty. SECONDARY DIAGNOSES: Include osteoarthritis and breast cancer. CONSULTS: None obtained. HISTORY AND PHYSICAL EXAMINATION: Well documented in the patient's chart. HOSPITAL COURSE: The patient was admitted on 03/05/2019, underwent total knee arthroplasty. She tolerated the procedure well. There were no complications. She was transferred to the PACU postoperatively and later to the orthopedic floor for further care. She was given Ancef for antibiotic prophylaxis, VANDA stockings, SCDs and aspirin for DVT prophylaxis. Hemoglobin, hematocrit and vital signs were monitored during her hospital stay and remained stable. She did not require any blood transfusions. There were no complications. She did have a vasovagal episode apparently and felt that maybe this is due to the pain medicine. She was encouraged to use the pain medicine as needed for pain, but recommended maybe trying just 1 pill at a time. By postoperative day 2, she was tolerating a regular diet, pain was controlled with oral pain medicines. She was participating in physical therapy. On postop day 2, she was discharged home, set up with home health services. She was given printed discharge instructions including new prescriptions for extra strength Tylenol, aspirin, and oxycodone. Continue her home medicines. Continue physical therapy, weightbearing as tolerated, VANDA stockings. Follow up approximately 2 weeks postop or sooner if there are any problems or concerns.
== END 2019-03-07 12:59 | disposition home health service (06) | DRG 470 ==
LOC: ASU 08:09 → 3E 12:32